=== PATIENT | male | born 1960 | race African-American/Black ===

== ENCOUNTER 2017-06-04 16:27 | Emergency (ER) | payer SELFPAY ==
[~2017-06-04] VITALS: Ht 170.2 cm; Wt 100.0 kg
[2017-06-04] MEDS ORDERED: ACETAMINOPHEN 500MG TABLET PO ONE (21:30)
[2017-06-04 22:30] VITALS: BP 122/74
== END 2017-06-04 23:10 | disposition home or self-care (01) ==
LOC: ER 16:27
DX: M25.562 Pain in left knee (principal); R03.0 Elevated blood-pressure reading, without diagnosis of hypertension; F17.210 Nicotine dependence, cigarettes, uncomplicated
CPT/HCPCS: 73562; 99284